=== PATIENT | female | born 1965 | race Caucasian/White ===

== ENCOUNTER 2018-02-07 11:35 | Observation (INO) ==
[2018-02-07] MEDS ORDERED: Isovue-370 500 ML INFUS..BTL IV ONE (12:03)
--- NOTE | 2018-02-07 12:09 | Emergency Department Note ---
Disposition Clinical Impression: Neurological deficit present Mastoiditis Qualifiers: Laterality: right Qualified Code(s): H70.91 - Unspecified mastoiditis, right ear Disposition: Admitted As Inpatient Condition: Good Neuro HPI - General Chief Complaint: ED Neuro Symptoms/Deficit Stated Complaint: right sided facial numbness Time Seen by Provider: 02/07/18 11:50 - History of Present Illness HPI Narrative: Patient with a complicated medical history and down playing overall symptoms presents emergency department with right-sided deficits. Patient has a history of Lyme disease that she states dates affected her central nervous system, recent perforated tympanic membrane with hearing loss, microvascular heart disease, Sjogren's, thyroid disease presenting from the neurology office for evaluation of feeling off balance and noticing right facial droop in the mirror this morning. She states that she has not been getting a lot of sleep. She is expecting a grandbaby. Her daughter is moving in with her. She states that she has been "walking around like she is drunk from no sleep" with her daughter who also has similar symptoms from lack of sleep. The patient does have objective findings on exam which include right-sided facial numbness as well as lower facial droop and right-sided paresthesias with associated decrease in strength. Patient is able to keep her leg off the bed for 10 seconds but the right leg is weak compared to the left. At this point I have been notified by nursing staff at [facility] wants to be notified of stroke alert within 24 hours. She woke up with the symptoms that she had felt off balance but did not notice the facial droop until she was brushing her teeth in the near. Last known well in regards to the right-sided deficits would have been last night. Woke up with symptoms. - Related Data Home Medications: Home Medications Medication Instructions Recorded Confirmed Levothyroxine Sodium [Synthroid] 137 mcg PO 0630 03/26/17 02/07/18 Ranolazine [Ranexa] 1,000 mg PO BID 03/26/17 02/07/18 Albuterol Sulfate [Albuterol 2 puff IH Q4HR PRN 02/07/18 02/07/18 Inhaler] Amitriptyline [Elavil] 25 mg PO HS 02/07/18 02/07/18 Aspirin [Lo-Dose Aspirin EC] 81 mg PO DAILY 02/07/18 02/07/18 Benzonatate [Tessalon] 100 mg PO TID PRN 02/07/18 02/07/18 Budesonide/Formoterol 160/4.5 2 puff IH BIDR 02/07/18 02/07/18 [Symbicort 160/4.5] Cyanocobalamin (B-12) [Vitamin B12] 1,000 mcg IM QWEEK 02/07/18 02/07/18 Fexofenadine HCl [Allergy Relief] 180 mg PO DAILY PRN 02/07/18 02/07/18 Tramadol HCl [Ultram] 50 mg PO BID PRN 02/07/18 02/07/18 Previous Rx's Medication Instructions Recorded Cephalexin [Keflex] 500 mg PO TID #30 capsule 02/03/18 RX: PredniSONE [Deltasone] 20 mg PO DAILY #12 tablet 02/03/18 Allergies/Adverse Reactions: Allergies Allergy/AdvReac Type Severity Reaction Status Date / Time duloxetine [From Cymbalta] AdvReac Confusion Verified 02/03/18 16:33 trazodone AdvReac Confusion Verified 02/03/18 16:33 All systems ED: reviewed and negative except as stated. Review of Systems: As Per HPI Constitutional: Denies: fever, chills ENT ED: Reports: ear pain, hearing loss Cardiovascular: Denies: chest pain, palpitations Respiratory: Denies: cough, dyspnea, wheezes Gastrointestinal: Denies: abdominal pain, nausea, vomiting Genitourinary: Denies: urgency, dysuria Integumentary: Denies: rash, abrasion Neurological: Reports: weakness, paresthesias Past Medical History - Past Medical History Medical history: Reports: non-contributory Surgical history: Reports: hysterectomy, orthopedic, other, sinus surgery Psychiatric history: Reports: depression - Social History Smoking Status: Current every day smoker Smokeless Tobacco Status: No Alcohol use: Reports: none Drug use: Reports: none Physical Exam - General Limitations: no limitations General appearance: alert, in no apparent distress - Head Head exam: atraumatic, normocephalic - Eye Eye exam: Present: normal appearance, PERRL, EOMI - ENT ENT exam: normal exam, normal oropharynx - Neck Neck exam: Present: normal inspection, full ROM - Chest Chest inspection: Present: normal inspection, symmetric chest wall rise - Respiratory Respiratory exam: Present: normal lung sounds bilaterally. Absent: respiratory distress, wheezes - Cardiovascular Cardiovascular exam: Present: regular rate, normal rhythm - Abdominal Exam Abdominal exam: Present: soft, Non-Tender - Extremities Exam Extremities exam: Present: normal inspection. Absent: full ROM, tenderness - Back Exam Back exam: Present: normal inspection. Absent: tenderness - Neurological Exam Neurological exam: Present: alert, oriented X3 - Expanded Neurological Exam Patient oriented to: Present: person, place, time Speech: Present: fluid speech Cranial nerves: EOM function (II, III, IV, ): Normal, facial sensation (V): Abnormal Right, facial palsy (VII): Abnormal Right, spinal accessory function (XI): Normal, tongue deviation (XII): Normal Cerebellar function: finger to nose: Normal, heel to mckinney: Normal Motor strength - LUE: 5/5 Motor strength - RUE: 4/5 Motor strength - LLE: 5/5 Motor strength - RLE: 4/5 Sensory exam upper extremity: light touch: Abnormal Right Sensory exam lower extremity: light touch: Normal Coma Scale Eye Opening: Spontaneous Coma Scale Motor Response: Obeys Commands Coma Scale Verbal Response: Oriented Coma Scale Total: 15 Course - Consultations Consultation #1: Case was discussed via [facility] neurology telecommunications. Patient was evaluated by their neurologist. Patient is not a candidate for TPA. Patient's CTA head and neck normal. Patient is not a candidate for any other [facility] specific intervention. They do recommend further workup for stroke. Patient is able to stay at [facility] for further stroke evaluation. Consultation #2: Discussed with Hospitalist, pt accepted. Consultation #3: Discussed with ENT. ENT recommends antibiotics and a dose of steroids here in the emergency department. If patient continues to have effusion she may need re-evaluation in the outpatient clinic. Vital Signs Temperature 98.1 F 02/07/18 11:39 Pulse Rate 73 02/07/18 11:39 Respiratory Rate 17 02/07/18 11:39 Blood Pressure 144/98 02/07/18 11:39 O2 Sat by Pulse Oximetry 97 02/07/18 11:39 Temperature 98.0 F 02/07/18 17:38 Pulse Rate 58 02/07/18 17:38 Respiratory Rate 16 02/07/18 21:34 Blood Pressure 146/95 02/07/18 17:38 O2 Sat by Pulse Oximetry 97 02/07/18 21:34 Oxygen Delivery Oxygen Delivery Room Air Neuro Symptoms/Deficit - Lab Data Result diagrams: 02/07/18 12:08 02/07/18 12:08 Lab Results 02/07/18 02/07/18 02/07/18 Range/Units 12:08 12:08 12:08 WBC 13.3 H (4.3-11.1) K/mcL RBC 4.28 (3.82-4.97) M/mcL Hgb 12.9 (11.5-15.4) g/dL Hct 39.8 (35.3-44.9) % MCV 93.0 (83.0-100.0) fL MCH 30.1 (28.0-33.3) pg MCHC 32.4 (31.6-35.5) g/dL RDW 13.6 (11.5-14.5) % Plt Count 240 (140-400) K/mcL MPV 10.7 (9.4-12.4) fL PT 10.7 (9.4-12.1) Seconds INR 1.0 APTT 27.7 (26.0-36.0) Seconds Sodium 138 (136-145) mEq/L Potassium 3.8 (3.5-5.1) mEq/L Chloride 105 (98-107) mEq/L Carbon Dioxide 26 (23-29) mEq/L BUN 26 H (6-20) mg/dL Creatinine 0.96 (0.60-1.20) mg/dL Est GFR ( Amer) > 60 (> 60) Est GFR (Non-Af Amer) > 60 (> 60) BUN/Creatinine Ratio 27 H (6-26) Glucose 107 H (70-105) mg/dL Calculated Osmolality 291 (280-300) Calcium 9.4 (8.6-10.3) mg/dL Troponin I < 0.03 (< 0.04) ng/mL TSH 80.300 H (0.340-5.600) mcIU/mL NIH Stroke Scale - Level of Consciousness LOC: Alert - LOC Questions LOC Questions: Answers both correctly - LOC Commands LOC Commands: Performs both correctly - Best Gaze Best Gaze: Normal - Visual Visual: No visual loss - Facial Palsy Facial Palsy: Minor asymmetry on smiling, flattened nasolabial fold - Motor Arms Motor Arm-Left: No drift for 10 seconds Motor Arm-Right: Drift, does NOT hit bed - Motor Legs Motor Leg-Left: No drift for 5 seconds Motor Leg-Right: No drift for 5 seconds - Limb Ataxia Limb Ataxia: Normal, No Ataxia - Sensory Sensory: Mild to moderate loss, "not as sharp" - Best Language Best Language: No aphasia - Dysarthria Dysarthria: Normal - Extinction and Inattention Extinction and Inattention: Normal - NIHSS Total Score NIHSS Total Score: 3 TPA Checklist - LKW: 3-4.5 hrs Add. Warnings/Precautions Patient/family understanding: The patient/family members have been counseled and understood the risk, benefit, and alternatives of treatment.
[2018-02-07 12:16] LABS: Hematocrit 39.8 % (35.3-44.9); Hemoglobin 12.9 g/dL (11.5-15.4); Mean Corpuscular HGB Conc 32.4 g/dL (31.6-35.5); Mean Corpuscular Hemoglobin 30.1 pg (28.0-33.3); Mean Platelet Volume 10.7 fL (9.4-12.4); Platelet Count 240 K/mcL (140-400); Red Blood Count 4.28 M/mcL (3.82-4.97); Red Cell Distribution Width 13.6 % (11.5-14.5)
[2018-02-07 12:35] LABS: Prothrombin Time 10.7 Seconds (9.4-12.1)
[2018-02-07 12:37] LABS: BUN/Creatinine Ratio 27 (6-26); Blood Urea Nitrogen 26 mg/dL (6-20); Calcium 9.4 mg/dL (8.6-10.3); Carbon Dioxide 26 mEq/L (23-29); Chloride 105 mEq/L (98-107); Glucose 107 mg/dL (70-105); Osmolality,Calculated 291 (280-300); Potassium 3.8 mEq/L (3.5-5.1); Sodium 138 mEq/L (136-145); eGFR For Non-African Americans > 60 (> 60)
[2018-02-07 12:38] LABS: Activated Partial Thrombo Time 27.7 Seconds (26.0-36.0); Troponin I < 0.03 ng/mL (< 0.04)
[2018-02-07] MEDS ORDERED: Clindamycin 600 MG/50 ML 600 MG/50 ML IV.SOLN IVPB ONE (13:18)
[2018-02-07] MEDS ORDERED: Levothyroxine Sodium 100 MCG VIAL IVP ONE (14:34)
[2018-02-07] MEDS ORDERED: Naloxone 0.4 MG/ML INJ IVP PRN (14:39)
[2018-02-07] MEDS ORDERED: Benzonatate 100 MG CAPSULE PO PRN (14:45)
[2018-02-07] MEDS ORDERED: Cyanocobalamin (B-12) 1,000 MCG/ML VIAL IM SCH (14:45)
[2018-02-07] MEDS ORDERED: Loratadine 10 MG TABLET PO PRN (14:45)
[2018-02-07] MEDS ORDERED: Aspirin 81 MG TAB.CHEW PO STA (14:53)
--- NOTE | 2018-02-07 14:56 | Internal Med History&Physical ---
Date of Encounter: 02/07/18 Time of Encounter: 14:49 Internal Medicine - H&P: HPI Chief complaint: Right-sided facial droop Admitted From: Home Plans for Post Hospital Care: Home History of present illness: Ms. Garcia is a 52 year old female with history of hypothyroidism noncompliant medications, recent right-sided ear infection and Lyme disease presented to the emergency department with right-sided facial droop. As per patient she woke up at her usual health state and was pressing her teeth and noticed the right-sided facial drooping the mirror. She noticed that the right eye is drooping along with the right angle of her mouth. In addition she reports tingling of the right arm and right leg weakness that is more than her usual. She did not appointment with Dr. Henson today at the office to go over the recent labs that was performed and was sent to the emergency department for further evaluation of the symptoms. While walking into the emergency department she felt as though she was drooping/leaning to the right. Denies gait difficulty. Her symptoms still have not resolved. She reports that she has had difficulty sleeping and has been sleeping more often during the day. She has lost her insurance and has not taken any of her medications especially the thyroid medications that was prescribed to her for the past few weeks. In addition to above she was recently diagnosed with ruptured tympanic membrane and an area ear infection and was started on Keflex she reports increasing purulent discharge from her right ear that is yellow in color and is unassociated with foul smell. She has been seen at the urgent care for thisin addition to Keflex she was also prescribed a 6 day course of prednisone. Patient has not been taking her aspirin 81 mg daily for the past few weeks. She has had no bowel or bladder incontinence, no recent falls or seizure like activity. She was diagnosed with Lyme disease 3 years ago and is on multiple peripheral neuropathy medications. She denies fever, chills, palpitations, shortness of breath, nausea, vomiting, diarrhea, leg swelling, calf tenderness, heat or cold intolerance, LOC, syncope, headache, vision changes, loss of function in her extremities, PND or orthopnea. Past Med Surg Social Fam HX - Past Medical History Medical history: non-contributory Additional medical history: Lyme's Disease Psychiatric history: depression - Past Surgical History Surgical History: hysterectomy, orthopedic, other, sinus surgery Additional surgical history: left axilla cyst removed. heart cath x 2. knee scope. foot surgery - Social History Smoking Status: Current every day smoker Smokeless Tobacco Status: No Alcohol use: none Drug use: none - Family History Father Adopted: No Family Member Ethnicity: Non- Living Status: Internal Medicine - H&P: Meds Levothyroxine Sodium [Synthroid] 137 mcg PO 0630 03/26/17 [History] Ranolazine [Ranexa] 1,000 mg PO BID 03/26/17 [History] Cephalexin [Keflex] 500 mg PO TID #30 capsule 02/03/18 [Rx] PredniSONE [Deltasone] 20 mg PO DAILY #12 tablet 02/03/18 [Rx] Albuterol Sulfate [Albuterol Inhaler] 2 puff IH Q4HR PRN 02/07/18 [History] Amitriptyline [Elavil] 25 mg PO HS 02/07/18 [History] Aspirin [Lo-Dose Aspirin EC] 81 mg PO DAILY 02/07/18 [History] Benzonatate [Tessalon] 100 mg PO TID PRN 02/07/18 [History] Budesonide/Formoterol 160/4.5 [Symbicort 160/4.5] 2 puff IH BIDR 02/07/18 [History] Cyanocobalamin (B-12) [Vitamin B12] 1,000 mcg IM QWEEK 02/07/18 [History] Fexofenadine HCl [Allergy Relief] 180 mg PO DAILY PRN 02/07/18 [History] Tramadol HCl [Ultram] 50 mg PO BID PRN 02/07/18 [History] Allergy/AdvReac Type Severity Reaction Status Date / Time duloxetine [From Cymbalta] AdvReac Confusion Verified 02/03/18 16:33 trazodone AdvReac Confusion Verified 02/03/18 16:33 All Systems PM: A 10-system review of systems was performed and is negative for pertinent fi ndings except as documented above in the HPI. - Constitutional Vitals: Temp Pulse Resp BP Pulse Ox 98.1 F 73 17 144/98 97 02/07/18 11:39 02/07/18 11:39 02/07/18 11:39 02/07/18 11:39 02/07/18 11:39 Exam: General: Patient is alert, oriented, no acute distress, obese Head: atraumatic, normocephalic, Eye: normal appearance, PERRL, no scleral icterus, no conjunctival injection ENT: mucous membranes moist, normal external ear exam Neck: normal inspection, trachea midline, full ROM, no carotid bruits Chest: normal inspection, symmetric chest rise Respiratory: Good respiratory effort. Bilateral breath sounds are clear without wheezing, crackles, or rhonchi. Cardiovascular: Regular rate and rhythm. s1 and s2 No clicks, rubs, gallops, or murmors. Abdomen: Bowel sounds present normoactive x-4 quadrants. Abdomen is soft, nondistended. no Epigastric tenderness. No guarding or rebound. No organomegaly noted, obese musculoskeletal: Spontaneously moving all extremities. no edema, no calf tenderness Skin: warm, dry, intact. Neuro: Alert and oriented x4. Cranial nerves 2-12 is intact. Not aphasic, gait is steady but slow, rapid hand movements intact, [id number] intact, [id number] intact, sensation of the right side of the face is decreased as compared to the left side of the face, tongue is midline, wrinkles the forehead bilaterally Psych: Patient's affect is normal Internal Med - H&P Results - Labs CBC & Chem 7: 02/07/18 12:08 02/07/18 12:08 Labs: Short CBC 02/07/18 Range/Units 12:08 WBC 13.3 H (4.3-11.1) K/mcL Hgb 12.9 (11.5-15.4) g/dL Hct 39.8 (35.3-44.9) % Plt Count 240 (140-400) K/mcL BMP 02/07/18 12:08 Sodium 138 Potassium 3.8 Chloride 105 Carbon Dioxide 26 BUN 26 H Creatinine 0.96 Glucose 107 H Calcium 9.4 Cardiac Enzymes 02/07/18 Range/Units 12:08 Troponin I < 0.03 (< 0.04) ng/mL - EKG Data -: EKG Interpreted by Myself (pending ) - Impressions ITS Impressions Chest X-Ray 02/07/18 11:52 IMPRESSION: No acute cardiopulmonary process. D/ / Dieudonne Kaur MD / Dieudonne Kaur MD Interpreting Provider: Dieudonne Kaur MD Head CT 02/07/18 12:03 IMPRESSION: No acute intracranial abnormality. Severe right otomastoiditis The results of the examination were discussed with Dr. Garcia on 02/07/2018 at 12:34 p.m. D/ / Robles Coburn MD / Robles Coburn MD Interpreting Provider: Robles Coburn MD Head CTA 02/07/18 12:03 IMPRESSION: Normal CTA of the head and neck. No flow limiting stenosis, dissection, or aneurysm identified. D/ / Vivek Davis MD / Vivek Davis MD Interpreting Provider: Vivek Davis MD Neck CTA 02/07/18 12:05 IMPRESSION: Normal CTA of the head and neck. No flow limiting stenosis, dissection, or aneurysm identified. D/ / Vivek Davis MD / Vivek Davis MD Interpreting Provider: Vivek Davis MD - Assessment and plan (1) Weakness on right side of face Current Visit: Yes Status: Acute Assessment and plan: Because of the right side of the face and right-sided upper extremity tingling along with right lower extremity weakness rule out stroke Received aspirin 325 mg in the ED Continue aspirin 81 mg daily Lipid panel, A1c, B12 in a.m. TSH elevated 80.3 secondary to noncompliance to thyroid medications which were restarted Continue statins MRI head stat CT head along with CTA head and neck performed the emergency departmentresults below Echocardiogram Neuro checks every 4 hours and as per protocol neurology consult Vitals as per protocol Fall, aspiration, seizure precautions DVT prophylaxis with heparin subcutaneous Admission EKG stat Ct head: IMPRESSION: No acute intracranial abnormality. Severe right otomastoiditis CTA head and neck: IMPRESSION: Normal CTA of the head and neck. No flow limiting stenosis, dissection, or aneurysm identified. (2) Mastoiditis of right side Current Visit: Yes Status: Acute Assessment and plan: severe otomastoiditis started on IV vancomycin and zosyn ENT consulted by the ED physician ESR, CRP stat BCx CT head:IMPRESSION: No acute intracranial abnormality. Severe right otomastoiditis (3) Hypothyroidism Current Visit: No Status: Acute Assessment and plan: Not in myxedema Temperature within normal limit, heart rate within normal limit no edema of the extremities TSH is 80.300 secondary to noncompliance to medication due to insurance issues Synthroid 100 mcg given IV Continue home dose Synthroid at 137 mcg daily Qualifiers: Hypothyroidism type: acquired Qualified Code(s): E03.9 - Hypothyroidism, unspecified (4) Lyme arthritis Current Visit: No Status: Acute Assessment and plan: neurology on board Continue home medications if not contraindicated (5) DVT prophylaxis Current Visit: No Status: Acute Assessment and plan: heparin sc - Time Spent With Patient Total time spent is greater than 50% in coordination of care (as documented) at patient's floor/unit and/or counseling patient:
[2018-02-07] MEDS: 0.9 % Sodium Chloride 1,000 ML IVC SCH (15:34)
--- NOTE | 2018-02-07 16:46 | ENT - Consult Note ---
<Shruthi Thompson - Last Filed: 02/07/18 17:59> Date of Encounter: 02/07/18 Time of Encounter: 16:41 Assessment and Plan (1) Middle ear effusion Status: Acute Patient seen and examined at bedside today. No evidence of acute right mastoiditis. Right pinna is in normal position with no displacement, no erythema, swelling, or significant tenderness of right mastoid reported. Right serous middle ear effusion noted, no purulence noted. No coalescence of right mastoid noted upon evaluation of CT imaging. Right mastoid effusion present. Patient demonstrates no facial asymmetry or paralysis at this time. Patient is a grade I normal, on House-Brackmann facial paralysis scale. Patient previously treated with oral antibiotics. Recommend continued oral steroid taper. Patient to follow-up outpatient in ENT office for further evaluation and treatment. Will schedule audiogram to be completed in 3-4 weeks. No further intervention is warranted by ENT at this time. May contact ENT as needed. Qualifiers: Qualified Code(s): H65.91 - Unspecified nonsuppurative otitis media, right ear (2) Other specified disorders of right middle ear and mastoid Status: Acute History of Present Illness Consult date: 02/07/18 Reason for ENT Consult: other (otomastoiditis) Requesting physician: Tammy Montejo History of present illness: Patient is a 52-year-old female with past medical history of hypothyroidism and Lyme disease, who presented to ED today with complaint of stroke-like symptoms including right sided facial droop, with right sided arm and leg weakness. ENT was consulted due to reported CT findings of Severe right otomastoiditis. Patient reports decreased hearing and otalgia of the right ear began approximately one month ago, with reported rupture of right TM occuring 3 weeks ago, with associated bloody drainage. Patient states after reported rupture she no longer experienced otalgia. Patient reports she was seen in urgent care on Wednesday and was prescribed oral antibiotic and oral steroid for right otitis media. She does continue to admit to decreased hearing only in the right ear, with associated tinnitus of the right ear. Patient denies any current otalgia or otorrhea. Patient also denies any significant post auricular pain, swelling, or changes in position of the right ear. Patient admits to sensation of disequilibrium but denies any spinning or vertigo symptoms. Patient denies any history of prior ear surgeries in the or history of recurrent otitis media. Past Med Surg Social Fam HX - Past Medical History Medical history: non-contributory Additional medical history: Lyme's Disease Psychiatric history: depression - Past Surgical History Surgical History: hysterectomy, orthopedic, other, sinus surgery Additional surgical history: left axilla cyst removed. heart cath x 2. knee scope. foot surgery - Social History Smoking Status: Current every day smoker Smokeless Tobacco Status: No Alcohol use: none Drug use: none - Family History Father Adopted: No Family Member Ethnicity: Non- Living Status: Medications and Allergies Ranolazine [Ranexa] 1,000 mg PO BID 03/26/17 [History] Cephalexin [Keflex] 500 mg PO TID #30 capsule 02/03/18 [Rx] Albuterol Sulfate [Albuterol Inhaler] 2 puff IH Q4HR PRN 02/07/18 [History] Amitriptyline [Elavil] 25 mg PO HS 02/07/18 [History] Aspirin [Lo-Dose Aspirin EC] 81 mg PO DAILY 02/07/18 [History] Benzonatate [Tessalon] 100 mg PO TID PRN 02/07/18 [History] Budesonide/Formoterol 160/4.5 [Symbicort 160/4.5] 2 puff IH BIDR 02/07/18 [Hist ory] Cyanocobalamin (B-12) [Vitamin B12] 1,000 mcg IM QWEEK 02/07/18 [History] Fexofenadine HCl [Allergy Relief] 180 mg PO DAILY PRN 02/07/18 [History] Tramadol HCl [Ultram] 50 mg PO BID PRN 02/07/18 [History] Atorvastatin [Lipitor] 80 mg PO HS 30 Days tablet 02/08/18 [Rx] Levothyroxine [Synthroid] 175 mcg PO 0630 #30 tablet 02/08/18 [Rx] Naloxone [Narcan] 0.4 mg IVP Q2MIN PRN inj 02/08/18 [Rx] Nicotine Patch [Nicoderm] 14 mg TD DAILY #30 patch.td24 02/08/18 [Rx] PredniSONE [Deltasone] 40 mg PO DAILY #15 tablet 02/08/18 [Rx] Allergy/AdvReac Type Severity Reaction Status Date / Time duloxetine [From Cymbalta] AdvReac Confusion Verified 02/03/18 16:33 trazodone AdvReac Confusion Verified 02/03/18 16:33 ENT - ROS - EENT Nose, mouth and throat: abnormal hearing (right ear decreased), other (tinnitus) ENT Exam Initial Vital Signs Temp Pulse Resp BP Pulse Ox 98.1 F 73 17 144/98 97 02/07/18 11:39 02/07/18 11:39 02/07/18 11:39 02/07/18 11:39 02/07/18 11:39 - General physical appearance well developed, well nourished, no distress - Eyes PERRL, normal ocular movement - ENT normal pinna (normal position of bilateral pinna), CN 2-12 grossly intact, Other (EARS: bilateral EAC clear, without issue noted. Right TM without perforation. Gi colored serous effusion present. Slight retraction of TM noted. No significant amount of injection noted. Left TM normal, without perforation, injection, retraction, or bulging. No erythema, swelling, or significant tenderness reported with palpation of right mastoid area. Right pinna nondisplaced NOSE: septum grossly midline, inferior turbinates normal bilaterally. ORAL: Teeth in good repair, tongue midline with no deviation, normal hard and soft palate, uvula midline. tonsils atrophied. ) - Neck no masses, trachea midline, no lymphadectomy - Respiratory normal expansion, normal respiratory effort - Integumentary no rash, no growths, no abnormal pigmentation - Neurologic CN 2-12 grossly intact - Musculoskeletal normal gait, normal posture - Psychiatric oriented to time, oriented to person, oriented to place, speech is normal Exam Initial Vital Signs Temp Pulse Resp BP Pulse Ox 98.1 F 73 17 144/98 97 02/07/18 11:39 02/07/18 11:39 02/07/18 11:39 02/07/18 11:39 02/07/18 11:39 Results - Labs 02/07/18 12:08 02/07/18 12:08 Abnormal lab results WBC 13.3 K/mcL (4.3-11.1) H 02/07/18 12:08 ESR 26 mm/hr (0-15) H 02/07/18 15:45 BUN 26 mg/dL (6-20) H 02/07/18 12:08 BUN/Creatinine Ratio 27 (6-26) H 02/07/18 12:08 Glucose 107 mg/dL (70-105) H 02/07/18 12:08 TSH 80.300 mcIU/mL (0.340-5.600) H 02/07/18 12:08 Diabetes panel 02/07/18 Range/Units 12:08 Sodium 138 (136-145) mEq/L Potassium 3.8 (3.5-5.1) mEq/L Chloride 105 (98-107) mEq/L Carbon Dioxide 26 (23-29) mEq/L BUN 26 H (6-20) mg/dL Creatinine 0.96 (0.60-1.20) mg/dL Glucose 107 H (70-105) mg/dL Calcium 9.4 (8.6-10.3) mg/dL Thyroid panel 02/07/18 Range/Units 12:08 TSH 80.300 H (0.340-5.600) mcIU/mL Calcium panel 02/07/18 Range/Units 12:08 Calcium 9.4 (8.6-10.3) mg/dL Pituitary panel 02/07/18 Range/Units 12:08 Sodium 138 (136-145) mEq/L Potassium 3.8 (3.5-5.1) mEq/L Chloride 105 (98-107) mEq/L Carbon Dioxide 26 (23-29) mEq/L BUN 26 H (6-20) mg/dL Creatinine 0.96 (0.60-1.20) mg/dL Glucose 107 H (70-105) mg/dL Calcium 9.4 (8.6-10.3) mg/dL TSH 80.300 H (0.340-5.600) mcIU/mL Adrenal panel 02/07/18 Range/Units 12:08 Sodium 138 (136-145) mEq/L Potassium 3.8 (3.5-5.1) mEq/L Chloride 105 (98-107) mEq/L Carbon Dioxide 26 (23-29) mEq/L BUN 26 H (6-20) mg/dL Creatinine 0.96 (0.60-1.20) mg/dL Glucose 107 H (70-105) mg/dL Calcium 9.4 (8.6-10.3) mg/dL All other labs normal. Consult Discharge Plan - Plan Instructions: Levothyroxine (By mouth), Prednisone (By mouth), Atorvastatin (By mouth), Mastoiditis in Children (DC) Referrals: [facility] [Provider Group] - 02/24/18 2:30 pm () Quique Torres MD [Primary Care Provider] - 02/08/18 2:30 pm () Prescriptions: Atorvastatin [Lipitor] 80 mg PO HS 30 Days tablet Levothyroxine [Synthroid] 175 mcg PO 0630 #30 tablet Nicotine Patch [Nicoderm] 14 mg TD DAILY #30 patch.td24 PredniSONE [Deltasone] 40 mg PO DAILY #15 tablet <Ashley Steen - Last Filed: 02/09/18 14:11> Date of Encounter: 02/09/18 Assessment and Plan (1) Middle ear effusion Status: Acute Qualifiers: Qualified Code(s): H65.91 - Unspecified nonsuppurative otitis media, right ear (2) Other specified disorders of right middle ear and mastoid Status: Acute ENT Exam Initial Vital Signs Temp Pulse Resp BP Pulse Ox 98.1 F 73 17 144/98 97 02/07/18 11:39 02/07/18 11:39 02/07/18 11:39 02/07/18 11:39 02/07/18 11:39 Exam Initial Vital Signs Temp Pulse Resp BP Pulse Ox 98.1 F 73 17 144/98 97 02/07/18 11:39 02/07/18 11:39 02/07/18 11:39 02/07/18 11:39 02/07/18 11:39 Results - Labs 02/08/18 04:04 02/08/18 04:04 Abnormal lab results ESR 26 mm/hr (0-15) H 02/07/18 15:45 POC Glucose 128 mg/dL (70-99) H 02/07/18 12:04 Hemoglobin A1c 5.7 % (-5.6) H 02/08/18 04:04 Triglycerides 255 mg/dL (< 150) H 02/08/18 04:04 Cholesterol 268 mg/dL (< 200) H 02/08/18 04:04 LDL Cholesterol, Calc 168 mg/dL (0-99) H 02/08/18 04:04 VLDL Cholesterol, Calc 51 mg/dL (< 31) H 02/08/18 04:04 Cholesterol/HDL Ratio 5.5 (0-4.9) H 02/08/18 04:04 Vitamin B12 > 1500 pg/mL (250-1100) H 02/08/18 04:04 TSH 80.300 mcIU/mL (0.340-5.600) H 02/07/18 12:08 All other labs normal. - Attending Attestation Patient with a mastoid effusion on the CT scan which was reviewed independently by myself. There is no coalescence of the mastoid cells on the scan and no bony destruction. On clinical examination patient has a serous effusion then is not purulent in nature. This clinically as a sterile effusion and needs no antibiotic treatment. Patient with 30 been treated once with antibiotics for this. Patient currently on a steroid taper from an urgent care physician. I do agree with this current plan of care. I would recommend continuing the steroid taper to see if there is resolution of this sterile effusion within the right ear. On clinical exam her facial nerve is symmetric bilaterally with no weakness visible. Patient's sensation is intact in all 3 branches of the trigeminal nerve as well. There is no apparent complication from this sterile effusion by my examination and I do believe she can follow up as an outpatient after the steroid taper and follow-up in approximately 1 month for an audiogram to determine if the effusion has resolved. If there are effusion remains patient may need an ear tube placed for resolution of the fluid. The history, physical exam, and medical decision making was performed by myself in conjunction with the nurse practioner who saw the patient at the bedside. I was physically present and actively performed the examination and medical decision making. I have verified the accuracy of the Nurse practioners documentation with regards to communicating my history, physical exam findings, and medical decision making.
[2018-02-07] MEDS: Cyanocobalamin (B-12) 1,000 MCG TABLET PO SCH (18:24)
[2018-02-07] MEDS: predniSONE 20 MG TABLET PO SCH (19:17)
[2018-02-07] MEDS: traMADol 50 MG TABLET PO PRN (20:12)
[2018-02-07] MEDS: Nicotine 14 MG PATCH.TD24 TD SCH (20:12)
[2018-02-07] MEDS: Ranolazine 500 MG TAB.ER.12H PO SCH (20:12)
[2018-02-07] MEDS: *HR* Heparin 5,000 UNIT/ML VIAL SQ SCH (20:13)
[2018-02-07] MEDS: Budesonide/Formoterol 160/4.5 1 PUFF INH IH SCH (21:34)
[2018-02-07] MEDS: Piperacillin/Tazobactam 3.375 GM in 0.9 % Sodium Chloride Mini Bag 100 ML IVPB SCH (23:27)
[2018-02-08] MEDS: 0.9 % Sodium Chloride 1,000 ML IVC SCH ×2 (00:01→08:31)
[2018-02-08] MEDS: Piperacillin/Tazobactam 3.375 GM in 0.9 % Sodium Chloride Mini Bag 100 ML IVPB SCH ×2 (00:03→08:21)
[2018-02-08 05:33] LABS: Basophils % 0.3 %; Hematocrit 36.6 % (35.3-44.9); Hemoglobin 11.6 g/dL (11.5-15.4); Immature Granulocytes % 0.5 % (0-4); Lymphocytes # 2.7 K/mcL (0.6-4.6); Lymphocytes % 36.3 %; Mean Corpuscular HGB Conc 31.7 g/dL (31.6-35.5); Mean Corpuscular Volume 94.6 fL (83.0-100.0); Mean Platelet Volume 10.9 fL (9.4-12.4); Monocytes # 0.5 K/mcL (0.0-1.3); Neutrophils # 4.3 K/mcL (1.6-8.9); Platelet Count 232 K/mcL (140-400); Red Blood Count 3.87 M/mcL (3.82-4.97); Red Cell Distribution Width 13.7 % (11.5-14.5); Segmented Neutrophils % 56.9 %
[2018-02-08] MEDS: *HR* Heparin 5,000 UNIT/ML VIAL SQ SCH (06:30)
[2018-02-08 06:45] LABS: BUN/Creatinine Ratio 21 (6-26); Blood Urea Nitrogen 20 mg/dL (6-20); Calcium 8.8 mg/dL (8.6-10.3); Carbon Dioxide 27 mEq/L (23-29); Chloride 107 mEq/L (98-107); Chol/HDL Ratio 5.5 (0-4.9); Cholesterol 268 mg/dL (< 200); Glucose 101 mg/dL (70-105); HDL Cholesterol 49 mg/dL (40-59); LDL Cholesterol,Calculated 168 mg/dL (0-99); Magnesium 2.3 mg/dL (1.6-2.6); Osmolality,Calculated 297 (280-300); Phosphorous 3.5 mg/dL (2.7-4.5); Potassium 3.9 mEq/L (3.5-5.1); Sodium 142 mEq/L (136-145); Triglycerides 255 mg/dL (< 150); eGFR For Non-African Americans > 60 (> 60)
--- NOTE | 2018-02-08 07:46 | Internal Med History&Physical ---
Date of Encounter: 02/08/18 Internal Medicine - H&P: HPI History of present illness: Ms. Garcia is a 52 year old female Past Med Surg Social Fam HX - Past Medical History Medical history: non-contributory Additional medical history: Lyme's Disease Psychiatric history: depression - Past Surgical History Surgical History: hysterectomy, orthopedic, other, sinus surgery Additional surgical history: left axilla cyst removed. heart cath x 2. knee scope. foot surgery - Social History Smoking Status: Current every day smoker Packs per day: 1/2 ppd per day "at the least" Smokeless Tobacco Status: No Alcohol use: none Drug use: none - Family History Father Adopted: No Family Member Ethnicity: Non- Living Status: Age at : 64 Cause of : DC Hx Family Cardiac Disorders: Yes Hx Family Neurologic Disorders: Yes (Stroke) Mother Age: 74 Living Status: Still Living Hx Family Cardiac Disorders: Yes (Stroke) Hx Family Neuromuscular Disorders: Yes (Lupus) Internal Medicine - H&P: Meds Levothyroxine Sodium [Synthroid] 137 mcg PO 0630 03/26/17 [History] Ranolazine [Ranexa] 1,000 mg PO BID 03/26/17 [History] Cephalexin [Keflex] 500 mg PO TID #30 capsule 02/03/18 [Rx] PredniSONE [Deltasone] 20 mg PO DAILY #12 tablet 02/03/18 [Rx] Albuterol Sulfate [Albuterol Inhaler] 2 puff IH Q4HR PRN 02/07/18 [History] Amitriptyline [Elavil] 25 mg PO HS 02/07/18 [History] Aspirin [Lo-Dose Aspirin EC] 81 mg PO DAILY 02/07/18 [History] Benzonatate [Tessalon] 100 mg PO TID PRN 02/07/18 [History] Budesonide/Formoterol 160/4.5 [Symbicort 160/4.5] 2 puff IH BIDR 02/07/18 [History] Cyanocobalamin (B-12) [Vitamin B12] 1,000 mcg IM QWEEK 02/07/18 [History] Fexofenadine HCl [Allergy Relief] 180 mg PO DAILY PRN 02/07/18 [History] Tramadol HCl [Ultram] 50 mg PO BID PRN 02/07/18 [History] Allergy/AdvReac Type Severity Reaction Status Date / Time duloxetine [From Cymbalta] AdvReac Confusion Verified 02/03/18 16:33 trazodone AdvReac Confusion Verified 02/03/18 16:33 All Systems PM: A 10-system review of systems was performed and is negative for pertinent findings except as documented above in the HPI. - Constitutional Vitals: Temp Pulse Resp BP Pulse Ox 98.0 F 55 19 150/85 97 02/08/18 07:16 02/08/18 07:16 02/08/18 07:16 02/08/18 07:16 02/08/18 07:16 Internal Med - H&P Results - Labs CBC & Chem 7: 02/08/18 04:04 02/08/18 04:04 Labs: Short CBC 02/07/18 02/08/18 Range/Units 12:08 04:04 WBC 13.3 H 7.5 (4.3-11.1) K/mcL Hgb 12.9 11.6 (11.5-15.4) g/dL Hct 39.8 36.6 (35.3-44.9) % Plt Count 240 232 (140-400) K/mcL Neutrophils # 4.3 (1.6-8.9) K/mcL BMP 02/07/18 02/08/18 12:08 04:04 Sodium 138 142 Potassium 3.8 3.9 Chloride 105 107 Carbon Dioxide 26 27 BUN 26 H 20 Creatinine 0.96 0.95 Glucose 107 H 101 Calcium 9.4 8.8 Cardiac Enzymes 02/07/18 Range/Units 12:08 Troponin I < 0.03 (< 0.04) ng/mL - Impressions ITS Impressions Chest X-Ray 02/07/18 11:52 IMPRESSION: No acute cardiopulmonary process. D/ / Dieudonne Kaur MD / Dieudonne Kaur MD Interpreting Provider: Dieudonne Kaur MD Head CT 02/07/18 12:03 IMPRESSION: No acute intracranial abnormality. Severe right otomastoiditis The results of the examination were discussed with Dr. Garcia on 02/07/2018 at 12:34 p.m. D/ / Robles Coburn MD / Robles Coburn MD Interpreting Provider: Robles Coburn MD Head CTA 02/07/18 12:03 IMPRESSION: Normal CTA of the head and neck. No flow limiting stenosis, dissection, or aneurysm identified. D/ / Vivek Davis MD / Vivek Davis MD Interpreting Provider: Vivek Davis MD Neck CTA 02/07/18 12:05 IMPRESSION: Normal CTA of the head and neck. No flow limiting stenosis, dissection, or aneurysm identified. D/ / Vivek Davis MD / Vivek Davis MD Interpreting Provider: Vivek Davis MD Brain MRI 02/07/18 14:37 IMPRESSION: 1. No acute intracranial abnormality. 2. Right middle ear and mastoid effusion. D/ / Aubery Mcpherson / Aubrey Mcpherson Interpreting Provider: Aubrey Mcpherson - Assessment and plan (1) Lyme arthritis Current Visit: No Status: Acute (2) Hypothyroidism Current Visit: No Status: Acute Qualifiers: Hypothyroidism type: acquired Qualified Code(s): E03.9 - Hypothyroidism, unspecified (3) DVT prophylaxis Current Visit: No Status: Acute (4) Weakness on right side of face Current Visit: Yes Status: Acute (5) Mastoiditis of right side Current Visit: Yes Status: Acute - Time Spent With Patient Total time spent is greater than 50% in coordination of care (as documented) at patient's floor/unit and/or counseling patient:
[2018-02-08] MEDS: Cyanocobalamin (B-12) 1,000 MCG TABLET PO SCH (08:20)
[2018-02-08] MEDS: predniSONE 20 MG TABLET PO SCH (08:20)
[2018-02-08] MEDS: Nicotine 14 MG PATCH.TD24 TD SCH (08:20)
[2018-02-08] MEDS: Ranolazine 500 MG TAB.ER.12H PO SCH (08:21)
[2018-02-08] MEDS: traMADol 50 MG TABLET PO PRN (08:25)
[2018-02-08] MEDS ORDERED: Aspirin Enteric Coated 81 MG Tablet PO SCH (09:00)
--- NOTE | 2018-02-08 09:06 | Neurology - Consult Note ---
<Kailash Hastings - Last Filed: 02/08/18 09:03> Date of Encounter: 02/08/18 Time of Encounter: 09:03 Assessment and Plan (1) Weakness on right side of face Status: Resolved Neuro exam is nonfocal and nonlateralizing Patient does not have any weakness or facial deficits. CTA, CT head, MRI are negative. Patient is able to ambulate on her own. Likely patient's symptoms are from right middle ear effusion causing her pressure on the right side as well as balance issues. Patient was evaluated by ENT and recommend outpatient follow-up as well as oral steroid taper. Plan patient is okay for discharge from neurology perspective. (2) Hypothyroidism Status: Acute Patient has history of hypothyroidism and is currently noncompliant with her thyroid medication secondary to financial issues She does report severe fatigue, weight gain in the past month. reccomend social media content manager consult if patient cannot afford her medications for financial help. Qualifiers: Hypothyroidism type: acquired Qualified Code(s): E03.9 - Hypothyroidism, unspecified History of Present Illness Chief complaint: right side drooping HPI: Ms. Garcia is a 52 year old female presented with chief complaint of left facial drooping and she noticed while brushing her teeth. She also noted that she had weakness on the left side, numbness on the left face as well as difficulty balancing while ambulating. Patient had a neurology appointment with Dr. Henson who sent the patient to the emergency department for further evaluation. She denied slurred speech, double vision. She reports difficulty swallowing but this has been chronic for the past few weeks. She underwent CT of the head which was negative. In the emergency department she was seen to have a TSH of 80.3. Patient does report a 10 pound weight gain in the past month as well as severe fatigue, weakness. She reports not taking her thyroid medication due to financial issues at home. Past Med Surg Social Fam HX - Past Medical History Medical history: non-contributory Additional medical history: Lyme's Disease Psychiatric history: depression - Past Surgical History Surgical History: hysterectomy, orthopedic, other, sinus surgery Additional surgical history: left axilla cyst removed. heart cath x 2. knee scope. foot surgery - Social History Smoking Status: Current every day smoker Packs per day: 1/2 ppd per day "at the least" Smokeless Tobacco Status: No Alcohol use: none Drug use: none - Family History Father Adopted: No Family Member Ethnicity: Non- Living Status: Age at : 64 Cause of : [place] Hx Family Cardiac Disorders: Yes Hx Family Neurologic Disorders: Yes (Stroke) Mother Age: 74 Living Status: Still Living Hx Family Cardiac Disorders: Yes (Stroke) Hx Family Neuromuscular Disorders: Yes (Lupus) Medications and Allergies Ranolazine [Ranexa] 1,000 mg PO BID 03/26/17 [History] Cephalexin [Keflex] 500 mg PO TID #30 capsule 02/03/18 [Rx] Albuterol Sulfate [Albuterol Inhaler] 2 puff IH Q4HR PRN 02/07/18 [History] Amitriptyline [Elavil] 25 mg PO HS 02/07/18 [History] Aspirin [Lo-Dose Aspirin EC] 81 mg PO DAILY 02/07/18 [History] Benzonatate [Tessalon] 100 mg PO TID PRN 02/07/18 [History] Budesonide/Formoterol 160/4.5 [Symbicort 160/4.5] 2 puff IH BIDR 02/07/18 [History] Cyanocobalamin (B-12) [Vitamin B12] 1,000 mcg IM QWEEK 02/07/18 [History] Fexofenadine HCl [Allergy Relief] 180 mg PO DAILY PRN 02/07/18 [History] Tramadol HCl [Ultram] 50 mg PO BID PRN 02/07/18 [History] Atorvastatin [Lipitor] 80 mg PO HS 30 Days tablet 02/08/18 [Rx] Levothyroxine [Synthroid] 175 mcg PO 0630 #30 tablet 02/08/18 [Rx] Naloxone [Narcan] 0.4 mg IVP Q2MIN PRN inj 02/08/18 [Rx] Nicotine Patch [Nicoderm] 14 mg TD DAILY #30 patch.td24 02/08/18 [Rx] PredniSONE [Deltasone] 40 mg PO DAILY #15 tablet 02/08/18 [Rx] Allergy/AdvReac Type Severity Reaction Status Date / Time duloxetine [From Cymbalta] AdvReac Confusion Verified 02/03/18 16:33 trazodone AdvReac Confusion Verified 02/03/18 16:33 All Systems: The remainder of the systems were reviewed and are negative Review of Systems: Constitutional: Denies fever, chills HEENT: Denies headache, trauma, blurry vision, eye discharge, ear pain, ear discharge neck pain, sore throat, rhinorrhea Heart: Denies chest pain palpitations, LE edema Lungs: Denies shortness of breath cough Abdomen: Denies abdominal pain nausea vomiting diarrhea MSK: Denies back pain, falls, joint pain Kidney: Denies dysuria, hematuria Skin: Denies rash, ulcers Neuro: As per history of present illness Psych: denies axniety, depression Physical Examination - Vital Signs Vital Signs: Initial Vital Signs Temp Pulse Resp BP Pulse Ox 98.1 F 73 17 144/98 97 02/07/18 11:39 02/07/18 11:39 02/07/18 11:39 02/07/18 11:39 02/07/18 11:39 - Exam Exam: General: pleasant, without distress HEENT: Head atraumatic, normocephalic, EOMI, PERRL, absent ear discharge or trauma, Moist Mucous Membranes, uvula midline Neck: nontender to palpation, absent lymphadenopathy, Cardiovascualr: Regular rate and rhythm with no murmur, absent gallops or rubs, absent pedal edema, radial pulses 2 out of 4 Lungs: Clear to auscultation bilaterally, not in respiratory distress Abdomen: Soft nontender, nondistended positive bowel sounds, absent hepatomegaly Skin: warm and dry, absent rash, absent open wounds and nodules MSK: absent clubbing, cyanosis, joints without swelling Psych: good insight and judgment - Neurologic Detailed motor examination: full strength in all major muscle groups Motor examination - right side: 5/5: deltoids, biceps, triceps, wrist flexion, wrist extension, research physicist, hip flexors, tibialis Anterior, quadriceps, toe extension (EHL), plantarflexion Motor examination - left side: 5/5: deltoids, biceps, triceps, wrist flexion, wrist extension, hip flexors, research physicist, quadriceps, tibialis Anterior, toe extension (EHL), plantarflexion Detailed sensory examination: intact Reflex and gait examination: normal gait Reflexes: Biceps: 2+, Triceps: 2+, Brachioradialis: 2+, Patella: 2+, Achilles: 2+ Mental Status Examination: awake, alert, oriented to person, oriented to place, oriented to time, follows commands appropriately, answers questions appropriately, no agnosia, no aphasia, no aproxia Cranial nerve examination: PERRL, EOMI, visual luong intact, sensory to face intact, mastication intact, no facial asymmetry is present, no dysarthria, he aring is intact symmetrically, soft palate elevates bilaterally upon phonation, flexes SCM and trapezius muscles symmetrically with full power, tongue protrudes midline, no atrophy or facial fasiculations present Cerebellar examination: no dysmetria, performs finger to nose and heel to mckinney symmetrically without ataxia, no gait ataxia, no truncal ataxia, no difficulty with rapid alternating movements Results - Laboratory Findings CBC and BMP: 02/08/18 04:04 02/08/18 04:04 Abnormal lab findings: Abnormal lab results ESR 26 mm/hr (0-15) H 02/07/18 15:45 Triglycerides 255 mg/dL (< 150) H 02/08/18 04:04 Cholesterol 268 mg/dL (< 200) H 02/08/18 04:04 LDL Cholesterol, Calc 168 mg/dL (0-99) H 02/08/18 04:04 VLDL Cholesterol, Calc 51 mg/dL (< 31) H 02/08/18 04:04 Cholesterol/HDL Ratio 5.5 (0-4.9) H 02/08/18 04:04 Vitamin B12 > 1500 pg/mL (250-1100) H 02/08/18 04:04 TSH 80.300 mcIU/mL (0.340-5.600) H 02/07/18 12:08 Consult Discharge Plan - Plan Instructions: Levothyroxine (By mouth), Prednisone (By mouth), Atorvastatin (By mouth), Mastoiditis in Children (DC) Referrals: [facility] [Provider Group] - 02/24/18 2:30 pm () Quique Torres MD [Primary Care Provider] - 02/08/18 2:30 pm () Prescriptions: Atorvastatin [Lipitor] 80 mg PO HS 30 Days tablet Levothyroxine [Synthroid] 175 mcg PO 0630 #30 tablet Nicotine Patch [Nicoderm] 14 mg TD DAILY #30 patch.td24 PredniSONE [Deltasone] 40 mg PO DAILY #15 tablet <Delilah Henson I - Last Filed: 02/08/18 14:07> Date of Encounter: 02/08/18 Assessment and Plan (1) Weakness on right side of face Status: Resolved Pt was seen and examined, my medical decision was reviewed with the Resident Physician, I agree with the documented findings, disposition and treatment plas as described except to the extent set forth below. No focal findings on neurological examination to be suggestive of acute stroke no evidence of any infarct on MRI of the brain. Patient did have a slight facial droop earlier which seems to have resolved now perhaps it could be related to underlying inflammatory mastoiditis that she been experiencing and also noted to have on imaging studies. Has been evaluated by ENT. No evidence of any intravascular stenosis on CT angiogram. From neurology standpoint patient is stable and could be discharged with follow- up ENT Delilah Henson MD History of Present Illness HPI: Ms. Garcia is a 52 year old female All Systems: The remainder of the systems were reviewed and are negative Physical Examination - Vital Signs Vital Signs: Initial Vital Signs Temp Pulse Resp BP Pulse Ox 98.1 F 73 17 144/98 97 02/07/18 11:39 02/07/18 11:39 02/07/18 11:39 02/07/18 11:39 02/07/18 11:39 Results - Laboratory Findings CBC and BMP: 02/08/18 04:04 02/08/18 04:04 Abnormal lab findings: Abnormal lab results ESR 26 mm/hr (0-15) H 02/07/18 15:45 Hemoglobin A1c 5.7 % (-5.6) H 02/08/18 04:04 Triglycerides 255 mg/dL (< 150) H 02/08/18 04:04 Cholesterol 268 mg/dL (< 200) H 02/08/18 04:04 LDL Cholesterol, Calc 168 mg/dL (0-99) H 02/08/18 04:04 VLDL Cholesterol, Calc 51 mg/dL (< 31) H 02/08/18 04:04 Cholesterol/HDL Ratio 5.5 (0-4.9) H 02/08/18 04:04 Vitamin B12 > 1500 pg/mL (250-1100) H 02/08/18 04:04 TSH 80.300 mcIU/mL (0.340-5.600) H 02/07/18 12:08
[2018-02-08 09:19] LABS: Estimated Average Glucose 117 mg/dl; Hemoglobin A1C 5.7 %
--- NOTE | 2018-02-08 10:07 | Discharge Summary ---
- NOTES TO OUTPATIENT PROVIDER Notes to Outpatient Provider: Follow up with PCP in one week. follow-up with ENT in one week. please continue taking oral antibiotic and steroids. your cholesterol numbers are very high so we started you on new medication Lipitor at high dose 80 mg daily. You do have severe hypothyroidism with TSH @ 80.3, so increased your Levothyroxine to 175 mcg and please f/u with your PCP for 6 weeks TSH, T3, T4, Cholesterol and LFT's Orders not resulted at time of discharge: Pending orders 02/07/18 11:52 ECG 12 lead ECG [ECG] Stat 02/07/18 14:42 EV echocardiogram Routine 02/07/18 15:45 Culture,Blood [BC] Stat 02/09/18 07:00 Vancomycin,Trough Timed Date of Encounter: 02/08/18 Time of Encounter: 10:05 - Discharge Diagnosis (1) Weakness on right side of face Priority: Primary Status: Resolved (2) Mastoiditis of right side Priority: Secondary Status: Acute (3) Middle ear effusion Priority: Secondary Status: Acute Qualifiers: Qualified Code(s): H65.91 - Unspecified nonsuppurative otitis media, right ear (4) Hypothyroidism Priority: Secondary Status: Acute Qualifiers: Hypothyroidism type: acquired Qualified Code(s): E03.9 - Hypothyroidism, unspecified (5) HTN (hypertension) Priority: Secondary Status: Acute Qualifiers: Hypertension type: essential hypertension Qualified Code(s): I10 - Essential (primary) hypertension (6) Hyperlipidemia Priority: Secondary Status: Chronic Qualifiers: Hyperlipidemia type: unspecified Qualified Code(s): E78.5 - Hyperlipidemia, unspecified Hospital course: Ms. Garcia is a 52 year old female with history of hypothyroidism noncompliant medications, recent right-sided ear infection and Lyme disease presented to the emergency department with right-sided facial droop. As per patient she woke up at her usual health and noticed right facial droop. In addition she reports tingling of the right arm and right leg weakness that is more than her usual. She was recently diagnosed with ruptured tympanic membrane and an area ear infection and was started on Keflex. She has been seen at the urgent care for thisin addition to Keflex she was also prescribed a 6 day course of tapering prednisone. Patient was admitted in the hospital and placed her on cardiac cath rn. Her CT of the head showed no acute intracranial abnormality other than severe right otomastoiditis. MRI of the brain also did not show any acute infarctions them right middle ear and mastoid effusion. Patient was evaluated by ENT who recommend to continue oral antibiotic and steroids and follow with them as outpatient for hearing test. Pt stopped taking her levothyroixine for 3 weeks due to insurance issues. She does have severely elevated TSH @ 80, so increase her levothyroxine to 175 g also educated her importance of taking his medications regularly. She also has severely elevated LDL, so started her on Lipitor 80mg and recommend to f/u with PCP as an out pt. - Time Spent with Patient Total time spent providing and/or coordinating discharge services: - Discharge Medications Prescriptions: Atorvastatin [Lipitor] 80 mg PO HS 30 Days tablet Levothyroxine [Synthroid] 175 mcg PO 0630 #30 tablet Nicotine Patch [Nicoderm] 14 mg TD DAILY #30 patch.td24 PredniSONE [Deltasone] 40 mg PO DAILY #15 tablet Home Medications: Ranolazine [Ranexa] 1,000 mg PO BID 03/26/17 [History] Cephalexin [Keflex] 500 mg PO TID #30 capsule 02/03/18 [Rx] Albuterol Sulfate [Albuterol Inhaler] 2 puff IH Q4HR PRN 02/07/18 [History] Amitriptyline [Elavil] 25 mg PO HS 02/07/18 [History] Aspirin [Lo-Dose Aspirin EC] 81 mg PO DAILY 02/07/18 [History] Benzonatate [Tessalon] 100 mg PO TID PRN 02/07/18 [History] Budesonide/Formoterol 160/4.5 [Symbicort 160/4.5] 2 puff IH BIDR 02/07/18 [History] Cyanocobalamin (B-12) [Vitamin B12] 1,000 mcg IM QWEEK 02/07/18 [History] Fexofenadine HCl [Allergy Relief] 180 mg PO DAILY PRN 02/07/18 [History] Tramadol HCl [Ultram] 50 mg PO BID PRN 02/07/18 [History] Atorvastatin [Lipitor] 80 mg PO HS 30 Days tablet 02/08/18 [Rx] Levothyroxine [Synthroid] 175 mcg PO 0630 #30 tablet 02/08/18 [Rx] Naloxone [Narcan] 0.4 mg IVP Q2MIN PRN inj 02/08/18 [Rx] Nicotine Patch [Nicoderm] 14 mg TD DAILY #30 patch.td24 02/08/18 [Rx] PredniSONE [Deltasone] 40 mg PO DAILY #15 tablet 02/08/18 [Rx] Allergies/Adverse Reactions: Allergy/AdvReac Type Severity Reaction Status Date / Time duloxetine [From Cymbalta] AdvReac Confusion Verified 02/03/18 16:33 trazodone AdvReac Confusion Verified 02/03/18 16:33 Date of admission: 02/07/18 14:19 Primary care physician: Quique Torres MD Consults: 02/07/18 14:38 Consult to ENT [CONS] Routine Consulting Provider: JAYLYN Romero Reason for Consult: otomastoiditis with purulent drainage Call Completed: No 02/07/18 14:41 Consult to Neurology [CONS] Routine Consulting Provider: [facility] Reason for Consult: stroke Call Completed: No - Constitutional Vitals: Temp Pulse Resp BP Pulse Ox 98.0 F 55 19 150/85 97 02/08/18 07:16 02/08/18 07:16 02/08/18 07:16 02/08/18 07:16 02/08/18 07:16 Exam: Gen: Alert, awake, Oriented to time,place and person Chest: Diminished breath sounds B/L, No wheezing, No crackles, No rales Heart: S1S2+ RRR No murmurs Abd: Soft, NT, BS +, No organomegaly Ext: No edema, pulses are palpable, No calf tenderness Neuro : Benign findings..Mild Rt facial droop Skin: No rash. - Patient Status Disposition: Home, Self-Care Condition: Good Overall status at discharge: patient is back to baseline - Discharge Instructions Follow Up With: JAYLYN Romero [Provider Group] Quique Torres MD [Primary Care Provider] - 02/08/18 2:30 pm () - Diet and Activity Activity: increase activity as tolerated Diet: low salt diet
[2018-02-08] MEDS: Budesonide/Formoterol 160/4.5 1 PUFF INH IH SCH (10:48)
[2018-02-08 11:24] VITALS: BP 155/111
[2018-02-08] MEDS ORDERED: Aminoglycoside Consult 1 EACH MC ONE (12:21)
== END 2018-02-08 12:22 | disposition home or self-care (01) ==
LOC: EMEROOARM 11:35 → 3BNU 11:35
PROVIDERS: ADMIT Internal Medicine; ATTEND Internal Medicine